=== PATIENT | female | born 1975 | race Caucasian/White ===

== ENCOUNTER → 2021-10-30 | Outpatient (CLI) | payer BC ==
--- NOTE | 2021-10-30 11:06 | KCIC ---
US THYROID History: Reason: HYPOTHYROIDISM, ON THYROID MEDICATION; C/O DYSPHAGIA X10 MONTHS / Spl. Instructions: / History: Comparison: None. Technique: Multiple grayscale and color Doppler images of the thyroid gland were obtained. Findings: Right thyroid lobe: 3.5 x 1.5 x 1.3 cm. Heterogeneous echotexture. Left thyroid lobe: 3.4 x 1.3 x 0.9 cm. Heterogeneous echotexture. Isthmus: 0.3 cm. -Solid hypoechoic isthmus nodule measures 2.1 x 1.6 x 0.8 cm. TI-RADS 4 ACR Thyroid Imaging, Reporting And Data System (TI-RADS): White Paper Of The ACR TI-RADS Committee. J ournal of the [employer], volume 14, issue 5, pages 587-595 (November 2016). IMPRESSION: 1. TI-RADS 4 isthmus nodule. Recommend fine-needle aspiration. 2. Heterogeneous thyroid, compatible with known thyroiditis. Electronically signed by: Huy Whittington DO (10/30/2021 11:04 AM) [id number]
== END ==
LOC: KCIC US 08:30
PROVIDERS: ATTEND Nurse Practitioner Family
DX: E04.1 Nontoxic single thyroid nodule (principal); E03.9 Hypothyroidism, unspecified
CPT/HCPCS: 76536